=== PATIENT | male | born 1940 | race Caucasian/White ===

== ENCOUNTER 2018-03-16 12:03 | Inpatient (IN) ==
[2018-03-16] MEDS: ALBUTEROL 2.5 MG/3 ML NEB RESP TX SCH ×3 (12:31→13:06)
[2018-03-16 13:20] LABS: Basophils # 0.1 10*3/uL (0.0-0.2); Basophils % 0.4 % (0.0-0.8); Eosinophils # 0.4 10*3/uL (0.0-0.87); Eosinophils % 3.1 % (0.00-10.9); Hemoglobin 11.5 GM/DL (14.0-18.0); Immature Granulocytes % 0.8 %; Immature Granulocytes Absolute 0.11 #; Lymphocytes # 1.1 10*3/uL (1.4-4.0); Lymphocytes % 8.5 % (21.2-54.2); Mean Corpuscular HGB Conc 31.9 GM/DL (32-36); Mean Corpuscular Hemoglobin 30 PG (27-34); Mean Corpuscular Volume 93.5 FL (87-102); Mean Platelet Volume 9.9 FL (9.6-12.0); Monocytes # 1.5 10*3/uL (0.11-0.8); Monocytes % 11.2 % (1.7-12.7); Neutrophils # 10.2 10*3/uL (1.4-7.4); Platelet Count 324 T/CUMM (130-400); Red Blood Count 3.85 MC/CUMM (3.8-5.5); Red Cell Distribution Width 13.2 % (9.3-17.3); White Blood Count 13.4 T/CUMM (4-12)
[2018-03-16 13:41] LABS: Bilirubin,Total 0.4 MG/DL (0.2-1.0); Osmolality,Calculated 279.7 MOS/KG (273-304); Total Protein 7.3 G/DL (6.4-8.3)
[2018-03-16 14:15] LABS: INR 1.1; PT Patient Result 11.4 SECS
[2018-03-16] MEDS ORDERED: ACETAMINOPHEN 325 MG TABLET PO PRN (15:18)
[2018-03-16] MEDS ORDERED: ONDANSETRON 4 MG/2 ML VIAL IV PRN (15:18)
[2018-03-16] MEDS ORDERED: DOCUSATE SODIUM 100 MG CAPSULE PO PRN (15:25)
[2018-03-16] MEDS ORDERED: DEXTROSE 50% 25 GM/50 ML VIAL IV PRN (15:27)
[2018-03-16] MEDS ORDERED: GLUCAGON 1 MG VIAL IM PRN (15:27)
[2018-03-16] MEDS ORDERED: CALCIUM ACETATE 667 MG CAPSULE PO SCH (15:30)
[2018-03-16] MEDS: CALCIUM ACETATE 667 MG CAPSULE PO SCH (17:22)
[2018-03-16] MEDS: cefTRIAXone 1,000 MG in SYRINGE 1 EACH IV SCH (17:22)
[2018-03-16] MEDS: INSULIN LISPRO 100 UNIT/ML SUBCUT SCH ×2 (17:31→22:18)
[2018-03-16] MEDS: AZITHROMYCIN INJ 500 MG in SODIUM CHLORIDE 0.9% 250 ML IV SCH (18:21)
[2018-03-16 20:09] LABS: Albumin 2.9 G/DL (3.4-5.0)
[2018-03-16 20:26] LABS: Apearance,Urine CLEAR (Clear); Bilirubin,Urine Negative (Negative); Blood, Urine Small mg/dL (Negative); Glucose,Urine (UA) Negative (Negative); Ketones,Urine Negative (Negative); Nitrite,Urine Negative (Negative); Protein,Urine 100 MG/DL; RBC,Urine 4 /HPF (0-4); Squamous Epithelial Cell,Urine Occasional /HPF (0-10); Urine Color Yellow (Yellow); Urine Specific Gravity 1.019 (1.001-1.035); Urine Urobilinogen < 2.0 EU/DL (0.2-1.0); WBC,Urine 8 /HPF (0-6)
[2018-03-16] MEDS ORDERED: amLODIPine 2.5 MG TABLET PO SCH (21:00)
[2018-03-16] MEDS: TERAZOSIN 2 MG CAPSULE PO SCH (22:14)
[2018-03-16] MEDS: GABAPENTIN 100 MG CAPSULE PO SCH (22:15)
[2018-03-16] MEDS: SERTRALINE 100 MG TABLET PO SCH (22:15)
[2018-03-16] MEDS: LACOSAMIDE 50 MG TABLET PO SCH (22:15)
[2018-03-16] MEDS: cloNIDine 0.1 MG TABLET PO SCH (22:16)
[2018-03-16] MEDS: hydrALAZINE 25 MG TABLET PO SCH (22:16)
[2018-03-16] MEDS: MONTELUKAST 10 MG TABLET PO SCH (22:18)
[2018-03-17 05:55] LABS: Basophils # 0.1 10*3/uL (0.0-0.2); Basophils % 0.4 % (0.0-0.8); Eosinophils # 0.5 10*3/uL (0.0-0.87); Eosinophils % 3.9 % (0.00-10.9); Hematocrit 32.7 VOL% (42.0-52.0); Hemoglobin 10.2 GM/DL (14.0-18.0); Immature Granulocytes % 0.8 %; Lymphocytes # 1.2 10*3/uL (1.4-4.0); Lymphocytes % 9.3 % (21.2-54.2); Mean Corpuscular HGB Conc 31.2 GM/DL (32-36); Mean Corpuscular Hemoglobin 29 PG (27-34); Mean Corpuscular Volume 92.9 FL (87-102); Mean Platelet Volume 10.2 FL (9.6-12.0); Monocytes # 1.8 10*3/uL (0.11-0.8); Monocytes % 13.3 % (1.7-12.7); Neutrophils # 9.5 10*3/uL (1.4-7.4); Neutrophils % 72.3 % (38.7-73.9); Platelet Count 352 T/CUMM (130-400); Red Blood Count 3.52 MC/CUMM (3.8-5.5); Red Cell Distribution Width 13.4 % (9.3-17.3); White Blood Count 13.2 T/CUMM (4-12)
[2018-03-17 06:21] LABS: Calcium 8.8 MG/DL (8.5-10.1); Osmolality,Calculated 285.5 MOS/KG (273-304); Potassium 4.5 MMOL/L (3.5-5.1); Risk Ratio 2.27; Thyroid Stimulating Hormone 0.857 uIU/ml (0.358-3.74); VLDL CHOLESTEROL 12.2 MG/DL
[2018-03-17] MEDS: INSULIN LISPRO 100 UNIT/ML SUBCUT SCH ×4 (07:48→21:25)
[2018-03-17] MEDS: CALCIUM ACETATE 667 MG CAPSULE PO SCH ×3 (08:23→16:37)
[2018-03-17] MEDS: PANTOPRAZOLE 40 MG TABLET PO SCH (08:23)
[2018-03-17] MEDS: LACOSAMIDE 50 MG TABLET PO SCH ×2 (08:23→21:23)
[2018-03-17] MEDS: FUROSEMIDE 40 MG/4 ML VIAL IV SCH (08:24)
[2018-03-17] MEDS: hydrALAZINE 25 MG TABLET PO SCH ×2 (08:24→15:09)
[2018-03-17] MEDS: FAMOTIDINE 20 MG TABLET PO SCH (08:24)
[2018-03-17 08:34] LABS: Lymphocytes,Pleural Fluid 86 %; Monocytes,Pleural Fluid 5 %; Neutrophils,Pleural Fluid 9 %
[2018-03-17 08:36] LABS: RBC,Pleural Fluid 11060 T/CUMM
[2018-03-17] MEDS: amLODIPine 10 MG TABLET PO SCH (08:58)
[2018-03-17] MEDS: ASPIRIN EC 325 MG TABLET PO SCH (08:58)
[2018-03-17] MEDS: GABAPENTIN 100 MG CAPSULE PO SCH ×2 (08:58→21:24)
[2018-03-17] MEDS: cloNIDine 0.1 MG TABLET PO SCH (08:58)
[2018-03-17] MEDS ORDERED: [UNRECOGNIZED DRUG - OTHER] PO SCH (09:00)
[2018-03-17] MEDS ORDERED: PRORENAL PO SCH (09:00)
[2018-03-17] MEDS ORDERED: cloNIDine 0.1 MG TABLET PO PRN (13:21)
[2018-03-17] MEDS: AZITHROMYCIN INJ 500 MG in SODIUM CHLORIDE 0.9% 250 ML IV SCH (16:36)
[2018-03-17] MEDS: cefTRIAXone 1,000 MG in SYRINGE 1 EACH IV SCH (16:36)
[2018-03-17] MEDS: TERAZOSIN 2 MG CAPSULE PO SCH (21:23)
[2018-03-17] MEDS: SERTRALINE 100 MG TABLET PO SCH (21:24)
[2018-03-17] MEDS: MONTELUKAST 10 MG TABLET PO SCH (21:24)
[2018-03-18 05:40] LABS: Basophils # 0.1 10*3/uL (0.0-0.2); Basophils % 0.5 % (0.0-0.8); Eosinophils # 0.6 10*3/uL (0.0-0.87); Eosinophils % 4.8 % (0.00-10.9); Hematocrit 32.5 VOL% (42.0-52.0); Immature Granulocytes % 0.7 %; Immature Granulocytes Absolute 0.09 #; Lymphocytes # 1.6 10*3/uL (1.4-4.0); Lymphocytes % 12.4 % (21.2-54.2); Mean Corpuscular HGB Conc 30.8 GM/DL (32-36); Mean Corpuscular Hemoglobin 29 PG (27-34); Mean Corpuscular Volume 95.6 FL (87-102); Mean Platelet Volume 10.1 FL (9.6-12.0); Monocytes # 1.9 10*3/uL (0.11-0.8); Monocytes % 14.8 % (1.7-12.7); Neutrophils # 8.6 10*3/uL (1.4-7.4); Neutrophils % 66.8 % (38.7-73.9); Platelet Count 343 T/CUMM (130-400); Red Cell Distribution Width 13.4 % (9.3-17.3); White Blood Count 12.8 T/CUMM (4-12)
[2018-03-18 05:53] LABS: Calcium 8.7 MG/DL (8.5-10.1)
[2018-03-18 05:54] LABS: Osmolality,Calculated 292.4 MOS/KG (273-304); Potassium 4.4 MMOL/L (3.5-5.1)
[2018-03-18 05:57] LABS: Calcium 8.4 MG/DL (8.5-10.1); Osmolality,Calculated 292.4 MOS/KG (273-304); Potassium 4.4 MMOL/L (3.5-5.1)
[2018-03-18] MEDS ORDERED: AZITHROMYCIN 250 MG TABLET PO SCH (09:00)
[2018-03-18] MEDS: FUROSEMIDE 40 MG/4 ML VIAL IV SCH (09:18)
[2018-03-18] MEDS: cloNIDine 0.1 MG TABLET PO SCH ×2 (09:19→09:28)
[2018-03-18] MEDS: GABAPENTIN 100 MG CAPSULE PO SCH (09:19)
[2018-03-18] MEDS: PANTOPRAZOLE 40 MG TABLET PO SCH (09:19)
[2018-03-18] MEDS: CALCIUM ACETATE 667 MG CAPSULE PO SCH ×3 (09:20→17:08)
[2018-03-18] MEDS: ASPIRIN EC 325 MG TABLET PO SCH (09:20)
[2018-03-18] MEDS: FAMOTIDINE 20 MG TABLET PO SCH (09:20)
[2018-03-18] MEDS: LACOSAMIDE 50 MG TABLET PO SCH (09:21)
[2018-03-18] MEDS: INSULIN LISPRO 100 UNIT/ML SUBCUT SCH ×3 (09:21→17:35)
[2018-03-18] MEDS: amLODIPine 10 MG TABLET PO SCH (09:21)
[2018-03-18 17:12] VITALS: BP 177/72
[2018-03-18] MEDS: cefTRIAXone 1,000 MG in SYRINGE 1 EACH IV SCH (17:35)
== END 2018-03-18 18:34 | disposition home or self-care (01) | DRG 199 ==
LOC: N.ED 12:03 → N.EDINP 14:07 → N.5E 14:56

== ENCOUNTER 2018-09-21 16:22 | Inpatient (IN) ==
[2018-09-21] MEDS ORDERED: methylPREDNISolone SOD SUC 125 MG/2 ML VIAL IV STA (17:08)
[2018-09-21] MEDS ORDERED: NITROGLYCERIN 2% OINT 1 INCH/GM PACK TOP STA (17:08)
[2018-09-21] MEDS ORDERED: ALBUTEROL NEB SOLN 5 MG/ML 20 ML/BOTTLE RESP TX SCH (17:30)
[2018-09-21 18:06] LABS: Basophils # 0.1 10*3/uL (0.0-0.2); Basophils % 0.3 % (0.0-0.8); Eosinophils # 0.3 10*3/uL (0.0-0.87); Eosinophils % 1.6 % (0.00-10.9); Hematocrit 29.9 VOL% (42.0-52.0); Hemoglobin 8.9 GM/DL (14.0-18.0); Immature Granulocytes Absolute 0.15 #; Lymphocytes # 0.9 10*3/uL (1.4-4.0); Lymphocytes % 5.7 % (21.2-54.2); Mean Corpuscular HGB Conc 29.8 GM/DL (32-36); Mean Corpuscular Hemoglobin 28 PG (27-34); Mean Corpuscular Volume 94.9 FL (87-102); Mean Platelet Volume 10.4 FL (9.6-12.0); Monocytes # 1.6 10*3/uL (0.11-0.8); Monocytes % 10.3 % (1.7-12.7); Neutrophils # 12.5 10*3/uL (1.4-7.4); Neutrophils % 81.1 % (38.7-73.9); Platelet Count 354 T/CUMM (130-400); Red Blood Count 3.15 MC/CUMM (3.8-5.5); Red Cell Distribution Width 15.5 % (9.3-17.3); White Blood Count 15.4 T/CUMM (4-12)
[2018-09-21 19:17] LABS: Albumin 2.6 G/DL (3.4-5.0); Bilirubin,Total 0.5 MG/DL (0.2-1.0); Calcium 8.4 MG/DL (8.5-10.1); Osmolality,Calculated 284.7 MOS/KG (273-304); Potassium 4.8 MMOL/L (3.5-5.1); Total Protein 7.6 G/DL (6.4-8.3)
[2018-09-21 19:25] LABS: INR 1.1
[2018-09-21] MEDS ORDERED: cefTRIAXone 1,000 MG in SODIUM CHLORIDE 0.9% 100 ML IV STA (19:53)
[2018-09-21] MEDS ORDERED: ALBUTEROL 2.5 MG/3 ML NEB RESP TX PRN (20:57)
[2018-09-21] MEDS ORDERED: ONDANSETRON 4 MG/2 ML VIAL IV PRN (21:06)
[2018-09-21] MEDS ORDERED: ACETAMINOPHEN 325 MG TABLET PO PRN (21:06)
[2018-09-21] MEDS ORDERED: DOCUSATE SODIUM 100 MG CAPSULE PO PRN (21:06)
[2018-09-21] MEDS ORDERED: ZALEPLON 5 MG CAPSULE PO PRN (21:11)
[2018-09-21] MEDS ORDERED: LIDOCAINE/PRILOCAINE CREAM 5 GM TUBE TOP PRN (21:11)
[2018-09-21] MEDS ORDERED: CALCIUM ACETATE 667 MG CAPSULE PO SCH (21:30)
[2018-09-21] MEDS: TERAZOSIN 5 MG CAPSULE PO SCH (23:08)
[2018-09-21] MEDS: INSULIN GLARGINE 100 UNIT/ML SUBCUT SCH (23:09)
[2018-09-21] MEDS: guaiFENesin/DM ER 600-30 MG TABLET PO SCH (23:09)
[2018-09-21] MEDS: AZELASTINE NASAL 137 MCG/SPRAY 30 ML BOTTLE BOTH NARES SCH (23:09)
[2018-09-21] MEDS: AZITHROMYCIN INJ 500 MG in SODIUM CHLORIDE 0.9% 250 ML IV SCH (23:10)
[2018-09-21] MEDS: GABAPENTIN 100 MG CAPSULE PO SCH (23:10)
[2018-09-21] MEDS: SERTRALINE 100 MG TABLET PO SCH (23:12)
[2018-09-21] MEDS ORDERED: GLUCAGON 1 MG VIAL IM PRN (23:35)
[2018-09-21] MEDS ORDERED: DEXTROSE 50% 25 GM/50 ML SYRINGE IV PRN (23:35)
[2018-09-22] MEDS: ALBUTEROL/IPRATROPIUM 3 ML NEB RESP TX SCH ×4 (00:59→19:32)
[2018-09-22 04:58] LABS: Basophils % 0.1 % (0.0-0.8); Hematocrit 28.7 VOL% (42.0-52.0); Hemoglobin 8.3 GM/DL (14.0-18.0); Immature Granulocytes % 1.3 %; Immature Granulocytes Absolute 0.19 #; Lymphocytes # 0.5 10*3/uL (1.4-4.0); Mean Corpuscular HGB Conc 28.9 GM/DL (32-36); Mean Corpuscular Hemoglobin 28 PG (27-34); Mean Corpuscular Volume 95.7 FL (87-102); Mean Platelet Volume 9.6 FL (9.6-12.0); Monocytes # 0.5 10*3/uL (0.11-0.8); Monocytes % 3.1 % (1.7-12.7); Neutrophils # 13.8 10*3/uL (1.4-7.4); Neutrophils % 92.5 % (38.7-73.9); Platelet Count 382 T/CUMM (130-400); Red Cell Distribution Width 15.5 % (9.3-17.3)
[2018-09-22 05:14] LABS: Calcium 8.4 MG/DL (8.5-10.1); Osmolality,Calculated 289.7 MOS/KG (273-304); Potassium 4.4 MMOL/L (3.5-5.1)
[2018-09-22 06:25] LABS: Hypochromasia 1+; Lymphocytes 3 % (20-55); Microcytosis 1+; Segmented Neutrophils 95 % (50-85); Total Cells Counted 100
[2018-09-22 06:26] LABS: Platelet Estimate Normal; Target Cells Slight
[2018-09-22] MEDS ORDERED: INSULIN ASPART SUBCUT SCH (08:00)
[2018-09-22] MEDS: PANTOPRAZOLE 40 MG TABLET PO SCH (08:25)
[2018-09-22] MEDS: predniSONE 20 MG TABLET PO SCH (08:25)
[2018-09-22] MEDS: ASPIRIN EC 81 MG TABLET PO SCH (08:25)
[2018-09-22] MEDS: amLODIPine 10 MG TABLET PO SCH (08:26)
[2018-09-22] MEDS: INSULIN LISPRO 100 UNIT/ML SUBCUT SCH ×4 (08:26→21:47)
[2018-09-22] MEDS: guaiFENesin/DM ER 600-30 MG TABLET PO SCH ×2 (08:26→21:47)
[2018-09-22] MEDS: CALCIUM ACETATE 667 MG CAPSULE PO SCH ×3 (08:26→16:56)
[2018-09-22] MEDS: CARVEDILOL 6.25 MG TABLET PO SCH ×2 (08:26→16:58)
[2018-09-22] MEDS: AZELASTINE NASAL 137 MCG/SPRAY 30 ML BOTTLE BOTH NARES SCH ×2 (08:27→21:49)
[2018-09-22] MEDS ORDERED: PRORENAL PO SCH (09:00)
[2018-09-22] MEDS ORDERED: [UNRECOGNIZED DRUG - OTHER] PO SCH (09:00)
[2018-09-22] MEDS: GABAPENTIN 100 MG CAPSULE PO SCH ×2 (12:48→21:47)
[2018-09-22] MEDS: MONTELUKAST 10 MG TABLET PO SCH (16:56)
[2018-09-22] MEDS: INSULIN GLARGINE 100 UNIT/ML SUBCUT SCH (21:46)
[2018-09-22] MEDS: TERAZOSIN 5 MG CAPSULE PO SCH (21:48)
[2018-09-22] MEDS: SERTRALINE 100 MG TABLET PO SCH (21:48)
[2018-09-22] MEDS: cefTRIAXone 1,000 MG in SODIUM CHLORIDE 0.9% 100 ML IV SCH (21:48)
[2018-09-22] MEDS: AZITHROMYCIN INJ 500 MG in SODIUM CHLORIDE 0.9% 250 ML IV SCH (23:36)
[2018-09-23] MEDS: ALBUTEROL/IPRATROPIUM 3 ML NEB RESP TX SCH ×4 (00:32→19:21)
[2018-09-23 05:12] LABS: Basophils % 0.2 % (0.0-0.8); Eosinophils % 0.1 % (0.00-10.9); Hematocrit 29.1 VOL% (42.0-52.0); Hemoglobin 8.5 GM/DL (14.0-18.0); Immature Granulocytes % 1.6 %; Immature Granulocytes Absolute 0.35 #; Lymphocytes # 1.5 10*3/uL (1.4-4.0); Lymphocytes % 7.1 % (21.2-54.2); Mean Corpuscular HGB Conc 29.2 GM/DL (32-36); Mean Corpuscular Hemoglobin 28 PG (27-34); Mean Corpuscular Volume 95.1 FL (87-102); Monocytes # 2.3 10*3/uL (0.11-0.8); Monocytes % 10.5 % (1.7-12.7); NRBC # 0.03 10*3/uL; Neutrophils # 17.2 10*3/uL (1.4-7.4); Neutrophils % 80.5 % (38.7-73.9); Platelet Count 417 T/CUMM (130-400); Red Blood Count 3.06 MC/CUMM (3.8-5.5); Red Cell Distribution Width 15.9 % (9.3-17.3); White Blood Count 21.4 T/CUMM (4-12)
[2018-09-23 05:27] LABS: Calcium 8.6 MG/DL (8.5-10.1); Osmolality,Calculated 282.8 MOS/KG (273-304); Potassium 4.1 MMOL/L (3.5-5.1)
[2018-09-23] MEDS: INSULIN LISPRO 100 UNIT/ML SUBCUT SCH ×4 (08:19→20:52)
[2018-09-23] MEDS: CARVEDILOL 6.25 MG TABLET PO SCH ×2 (08:19→16:37)
[2018-09-23] MEDS: guaiFENesin/DM ER 600-30 MG TABLET PO SCH ×2 (08:19→20:48)
[2018-09-23] MEDS: MULTIVITAMIN (BEROCCA) TABLET PO SCH (08:19)
[2018-09-23] MEDS: PANTOPRAZOLE 40 MG TABLET PO SCH (08:20)
[2018-09-23] MEDS: CALCIUM ACETATE 667 MG CAPSULE PO SCH ×3 (08:20→16:40)
[2018-09-23] MEDS: ASPIRIN EC 81 MG TABLET PO SCH (08:20)
[2018-09-23] MEDS: predniSONE 20 MG TABLET PO SCH (08:20)
[2018-09-23] MEDS: AZELASTINE NASAL 137 MCG/SPRAY 30 ML BOTTLE BOTH NARES SCH ×2 (08:23→20:53)
[2018-09-23] MEDS: amLODIPine 10 MG TABLET PO SCH (08:23)
[2018-09-23] MEDS: GABAPENTIN 100 MG CAPSULE PO SCH ×2 (13:39→20:49)
[2018-09-23] MEDS: MONTELUKAST 10 MG TABLET PO SCH (16:37)
[2018-09-23] MEDS: TERAZOSIN 5 MG CAPSULE PO SCH (20:48)
[2018-09-23] MEDS: SERTRALINE 100 MG TABLET PO SCH (20:49)
[2018-09-23] MEDS: INSULIN GLARGINE 100 UNIT/ML SUBCUT SCH (20:51)
[2018-09-23] MEDS: cefTRIAXone 1,000 MG in SODIUM CHLORIDE 0.9% 100 ML IV SCH (20:52)
[2018-09-23] MEDS ORDERED: AZITHROMYCIN 250 MG TABLET PO SCH (21:00)
[2018-09-24] MEDS: ALBUTEROL/IPRATROPIUM 3 ML NEB RESP TX SCH ×2 (00:10→07:37)
[2018-09-24 05:17] LABS: Basophils # 0.1 10*3/uL (0.0-0.2); Basophils % 0.3 % (0.0-0.8); Eosinophils # 0.1 10*3/uL (0.0-0.87); Eosinophils % 0.3 % (0.00-10.9); Hematocrit 30.6 VOL% (42.0-52.0); Hemoglobin 8.9 GM/DL (14.0-18.0); Immature Granulocytes Absolute 0.39 #; Lymphocytes # 1.8 10*3/uL (1.4-4.0); Mean Corpuscular HGB Conc 29.1 GM/DL (32-36); Mean Corpuscular Hemoglobin 28 PG (27-34); Mean Corpuscular Volume 95.9 FL (87-102); Mean Platelet Volume 9.9 FL (9.6-12.0); Monocytes # 2.2 10*3/uL (0.11-0.8); Monocytes % 11.4 % (1.7-12.7); NRBC # 0.03 10*3/uL; Neutrophils # 15.1 10*3/uL (1.4-7.4); Platelet Count 425 T/CUMM (130-400); Red Blood Count 3.19 MC/CUMM (3.8-5.5); Red Cell Distribution Width 16.2 % (9.3-17.3); White Blood Count 19.6 T/CUMM (4-12)
[2018-09-24 05:56] LABS: Calcium 8.6 MG/DL (8.5-10.1); Osmolality,Calculated 284.8 MOS/KG (273-304); Potassium 4.1 MMOL/L (3.5-5.1)
[2018-09-24] MEDS: INSULIN LISPRO 100 UNIT/ML SUBCUT SCH ×2 (07:21→12:10)
[2018-09-24] MEDS: CARVEDILOL 6.25 MG TABLET PO SCH (07:55)
[2018-09-24] MEDS: CALCIUM ACETATE 667 MG CAPSULE PO SCH ×2 (07:55→12:15)
[2018-09-24] MEDS: guaiFENesin/DM ER 600-30 MG TABLET PO SCH (07:59)
[2018-09-24] MEDS: MULTIVITAMIN (BEROCCA) TABLET PO SCH (07:59)
[2018-09-24] MEDS: PANTOPRAZOLE 40 MG TABLET PO SCH (07:59)
[2018-09-24] MEDS: ASPIRIN EC 81 MG TABLET PO SCH (07:59)
[2018-09-24] MEDS: predniSONE 20 MG TABLET PO SCH (07:59)
[2018-09-24] MEDS: amLODIPine 10 MG TABLET PO SCH (07:59)
[2018-09-24] MEDS: AZELASTINE NASAL 137 MCG/SPRAY 30 ML BOTTLE BOTH NARES SCH (08:00)
[2018-09-24 11:57] VITALS: BP 153/55
[2018-09-24] MEDS: GABAPENTIN 100 MG CAPSULE PO SCH (12:15)
== END 2018-09-24 13:37 | disposition home health service (06) | DRG 291 ==
LOC: N.ED 16:22 → N.EDINP 20:51 → N.2E 21:48
PROVIDERS: ADMIT Internal Medicine; ATTEND Internal Medicine